=== PATIENT | male | born 1990 | race Caucasian/White ===

== ENCOUNTER 2021-10-21 11:42 | Emergency (ER) | payer SELFPAY ==
[~2021-10-21] VITALS: Ht 190.5 cm; Wt 127.0 kg
[2021-10-21 12:18] VITALS: BP 138/71
[2021-10-21] MEDS ORDERED: PRED20TA PO (13:13)
[2021-10-21] MEDS ORDERED: ACYC-12 PO (13:13)
--- NOTE | 2021-10-21 13:16 | PHYS DOC ---
Past History Past Surgical History: No Surgical History (SHARI PAGAN APRN) General Adult EDM: Chief Complaint: FACE PROBLEM HPI: HPI: Patient is a 31-year-old male who presents to the emergency department for left- sided facial droop that started 1 week ago. Patient reports that prior to symptoms starting he drank couple shots of tequila and whiskey and had sudden episode of vomiting. Patient denies any medical history. He states that he does not take any medications, no recent vaccines. Patient states that he has never had this before. Patient denies shortness of breath, ear pain,cough, chest pain, fevers, nausea, vomiting, difficulty ambulating, unilateral weakness, headache. (SHARI PAGAN APRN) Review of Systems: Review of Systems: 14 body systems of the review of systems have been reviewed. See HPI for pertinent positive and negative responses, otherwise all other systems are negative, nonpertinent or noncontributory (SHARI PAGAN APRN) Physical Exam: PE: Constitutional: Well developed, well nourished, no acute distress, non-toxic appearance. [] HENT: Normocephalic, atraumatic, bilateral external/internal ears normal, oropharynx moist, no oral exudates, nose normal. [] Eyes: PERRLA, 4 mm bilaterally, EOMI, conjunctiva normal, no discharge. [] Neck: Normal range of motion, no tenderness, supple, no stridor. [] Cardiovascular:Heart rate regular rhythm, no murmur [] Lungs & Thorax: Bilateral breath sounds clear to auscultation [] Abdomen: Bowel sounds normal, soft, no tenderness, no masses, no pulsatile mass es. [] Skin: Warm, dry, no erythema, no rash. [] Back: Normal range of motion Extremities: No tenderness, no cyanosis, no clubbing, ROM intact, no edema. [] Neurologic: Alert and oriented X 3, normal motor function, normal sensory function, left-sided upper and lower facial droop, no pronator drift, equal statue carver strength, no limb ataxia. [] Psychologic: Affect normal, judgement normal, mood normal. [] (SHARI PAGAN APRN) Current Patient Data: Vital Signs: Vital Signs Date Time Temp Pulse Resp B/P (MAP) Pulse Ox O2 Delivery O2 Flow Rate FiO2 10/21/21 12:18 97.6 68 18 138/71 (93) 98 Room Air (SHARI PAGAN APRN) EKG: EKG: [] (SHARI PAGAN APRN) Radiology/Procedures: Radiology/Procedures: [] (SHARI PAGAN APRN) Heart Score: C/O Chest Pain: No Risk Factors: Risk Factors: DM, Current or recent (<one month) smoker, HTN, HLP, family history of CAD, obesity. Risk Scores: Score 0 - 3: 2.5% MACE over next 6 weeks - Discharge Home Score 4 - 6: 20.3% MACE over next 6 weeks - Admit for Clinical Observation Score 7 - 10: 72.7% MACE over next 6 weeks - Early Invasive Strategies (SHARI PAGAN APRN) Course & Med Decision Making: Course & Med Decision Making Pertinent Labs and Imaging studies reviewed. (See chart for details) Patient presents to the emergency department for left-sided upper and lower facial droop/paralysis that started 1 week ago. 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 He has no neurological deficits, no medical hx, stable vs. NIHSS was 0. Patient will be discharged with prednisone and acyclovir, he was educated on eye protection and eye care. I discussed with patient all findings and diagnostic testing as well as the need to follow-up with PCP for further evaluation and treatment or return to the ER if any new or worsening symptoms. Strict return precautions were also discussed at length. Patient voiced understanding and agreement with the plan. Patient is hemodynamically stable at the time of disposition. (SHARI PAGAN APRN) Dragon Disclaimer: Dragon Disclaimer: This electronic medical record was generated, in whole or in part, using a voice recognition dictation system. (SHARI PAGAN APRN) NIH Stroke Scale: NIH Stroke Scale Response (Comments) Value Level of Consciousness: 0 Alert/Responsive 0 LOC Questions: 0 Answers both correctly 0 LOC Commands: 0 Performs both tasks 0 Best Gaze: 0 Normal 0 Visual: 0 No visual loss 0 Facial Palsy: 0 Normal, symmetrical 0 Motor - Left Arm 0 No drift 0 Motor - Right Arm 0 No drift 0 Motor - Left Leg 0 No drift 0 Motor: Right Leg 0 No drift 0 Limb Ataxia: 0 Absent 0 Sensory: 0 No loss 0 Best Language: 0 Normal 0 Dysathria: 0 Normal 0 Extinction and Inattention: 0 Normal 0 Total 0 Attending Co-Sign The patient was seen and interviewed as well as examined at the bedside. The chart was reviewed. The case was discussed. Agree with the plan of care. (TANA LINCOLN DO) Departure Departure: Impression: Primary Impression: Pires's palsy Disposition: HOME / SELF CARE / HOMELESS Condition: GOOD Referrals: PCP,CANDY (PCP) Patient Instructions: Pires's Palsy Additional Instructions: You were seen in the emergency department for left-sided facial droop/paralysis. Your physical exam is consistent with Pires's palsy which is a inflammation of a cranial nerve usually due to a virus. You are being discharged home with a steroid and an antiviral to take as directed. As we discussed, eye protection is essential for this since you cannot completely close your eye. Please use artificial tears during the day and tape your eye shut at night to avoid a corneal abrasion. You may need to follow-up with an executive marketing assistant if needed. Follow-up with your primary care provider tomorrow regarding your ER visit. Please return to the emergency department if you develop weakness on one side, difficulty ambulating, headache, speech problems, decreased sensation on 1 side, or a new or worsening concerns. Scripts Acyclovir (ACYCLOVIR) 400 Mg Tablet 1 TAB PO 5XDAY for bells palsy for 7 Days, #35 TAB 0 Refills Prov: SHARI PAGAN APRN 10/21/21 Prednisone (PREDNISONE) 20 Mg Tablet 3 TAB PO DAILY for bells palsy for 7 Days, #21 TAB 0 Refills Prov: SHARI PAGAN APRN 10/21/21 SHARI PAGAN APRN Oct 21, 2021 13:16 TANA LINCOLN DO Oct 22, 2021 06:37
== END 2021-10-21 13:26 | disposition home or self-care (01) ==
LOC: ER 11:42
DX: G51.0 Bell's palsy (principal)
CPT/HCPCS: 99283

== ENCOUNTER 2022-01-19 04:18 | Emergency (ER) | payer SELFPAY ==
[~2022-01-19] VITALS: Ht 190.5 cm; Wt 127.0 kg
[~2022-01-19 04:18] MED LIST: ACYC-12 PO; PRED20TA PO
[2022-01-19 04:27] VITALS: BP 128/90
[2022-01-19] MEDS ORDERED: AMOX500C PO (04:38)
--- NOTE | 2022-01-19 04:40 | PHYS DOC ---
Past History Past Surgical History: No Surgical History Adult General Chief Complaint Chief Complaint: DENTAL PROBLEM HPI HPI Patient is an otherwise healthy 31-year-old male who presents with dental pain. States he has had this pain off and on for quite some time but is gotten worse over the last couple of days and has a cavity on the bottom left. States he has not seen a dentist. States he took 800 of ibuprofen earlier in the day with some relief but it is still hurting. Denies any pain or trouble swallowing. Denies any fevers, neck pain, chest pain, shortness of breath, abdominal pain, nausea, vomiting. Review of Systems Review of Systems Review of systems otherwise unremarkable except noted in HPI Allergies Allergies Allergies Coded Allergies Type Severity Reaction Last Updated Verified No Known Drug Allergies 01/19/22 No Physical Exam Physical Exam Constitutional: Well developed, well nourished, no acute distress, non-toxic appearance. [] HENT: Normocephalic, atraumatic, bilateral external ears normal, oropharynx moist, no oral exudates, poor dentition generally, mild on left molar [place], nose normal. [] Eyes: conjunctiva normal, no discharge. [] Neck: Normal range of motion, no tenderness, supple, no stridor. [] Cardiovascular:Heart rate regular rhythm, no murmur [] Skin: Warm, dry, no erythema, no rash. [] Neurologic: Alert and oriented X 3, no focal deficits noted. [] Psychologic: Affect normal, judgement normal, mood normal. [] Current Patient Data Vital Signs Vital Signs Date Time Temp Pulse Resp B/P (MAP) Pulse Ox O2 Delivery O2 Flow Rate FiO2 01/19/22 04:27 97.9 70 18 128/90 (103) 99 Room Air EKG EKG [] Radiology/Procedures Radiology/Procedures [] Heart Score C/O Chest Pain: No Risk Factors: Risk Factors: DM, Current or recent (<one month) smoker, HTN, HLP, family history of CAD, obesity. Risk Scores: Risk Factors: DM, Current or recent (<one month) smoker, HTN, HLP, family history of CAD, obesity. Course & Med Decision Making Course & Med Decision Making Patient is a 31-year-old male who presents with dental pain Vital signs not concerning. Physical exam noted above. Given pain medicine. Started on amoxicillin. Declined dental block. Given contact information for local free dentist and emergency dentist. Advised to call first thing Thursday morning to set up an immediate follow-up with a dentist. Gave recommendations for symptom treatment at home. Advised to come back to the ED with new or concerning symptoms. Patient grateful, verbalized understanding and agreed with plan of discharge. [] Dragon Disclaimer Dragon Disclaimer This electronic medical record was generated, in whole or in part, using a voice recognition dictation system. Departure Departure: Impression: Primary Impression: Pain, dental Disposition: HOME / SELF CARE / HOMELESS Condition: STABLE Referrals: PCP,NO (PCP) ADITI ROMERO MD Patient Instructions: Dental Pain Additional Instructions: Thank you for coming into the emergency department tonight and allowing us to take care of you. Please read the attached information carefully to go over things we discussed. You can continue Tylenol at 1000 mg every 8 hours, ibuprofen 800 mg every 8 hours and Benadryl 50 mg every 6 hours. You also get some [id number] Orajel, place it on a piece of cotton and bite down on it for 5 minutes. Please take your antibiotics as prescribed and until gone. You are given contact information for local free dentists in the emergency dentist, please call first thing Thursday morning to set up a follow-up appointment as soon as possible for reevaluation of your dental issues to decide whether you need feeling, root canal or extraction. Please come back with new or concerning symptoms as discussed. Scripts Amoxicillin (AMOXICILLIN) 500 Mg Capsule 1 CAP PO BID for dental pain for 7 Days, #14 CAP Prov: MANOLO ARCEO MD 01/19/22 MANOLO ARCEO MD Jan 19, 2022 04:40
[2022-01-19] MEDS ORDERED: BENZOCAINE ONE 20% MUCOSAL SPRAY. (04:42)
[2022-01-19] MEDS ORDERED: oxyCODONE/APAP 5/325 1 TAB TABLET ONE (04:42)
[2022-01-19] MEDS ORDERED: AMOXICILLIN 250 MG CAPSULE ONE (04:42)
[2022-01-19] MEDS ORDERED: oxyCODONE/APAP 5/325 1 TAB TABLET PO ONE (05:00)
[2022-01-19] MEDS ORDERED: BENZOCAINE ONE 20% MUCOSAL SPRAY. MM (05:00)
[2022-01-19] MEDS ORDERED: AMOXICILLIN 250 MG CAPSULE PO ONE (05:00)
== END 2022-01-19 04:55 | disposition home or self-care (01) ==
LOC: ER 04:18
DX: K08.89 Other specified disorders of teeth and supporting structures (principal)
CPT/HCPCS: 99284